=== PATIENT | male | born 1975 | race Caucasian/White ===

== ENCOUNTER 2020-11-04 11:32 | Inpatient (IN) | payer BC ==
[~2020-11-04] VITALS: Ht 175.3 cm; Wt 154.0 kg
[~2020-11-04 11:32] MED LIST: ALLEGRA ALLERGY60 MG PO; AMLO10 PO; ESCI10 PO; FENOFIBRATE145 MG PO; Lisinopril-Hct1 EAC4 PO
[2020-11-04] MEDS ORDERED: LISINOPRIL-HCT1 EAC1 PO ×2 (12:14→20:34)
[2020-11-04] MEDS ORDERED: LISI20 PO (13:17)
[2020-11-04] MEDS ORDERED: HYDCHL25 PO (13:17)
[2020-11-04 14:29] LABS: Hemoglobin 13.9 g/dL (13.5-17.5); Mean Corpuscular HGB 29.3 pg (26.0-34.0); Mean Corpuscular HGB Conc 33.1 g/dL (31.5-36.5); Mean Corpuscular Volume 88 fL (80-100); Platelet Count 127 K/mm3 (150-400); RDW Coefficient Variation 13.5 % (11.7-14.2); RDW Standard Deviation 44.3 fL (35.1-46.3); Red Blood Cell Count 4.75 M/mm3 (4.30-5.90); White Blood Cell Count 6.59 K/mm3 (4.00-11.30)
[2020-11-04 14:44] LABS: Alanine Aminotransfer (ALT/SGP 51 U/L (12-78); Albumin, Blood 3.3 g/dL (3.4-5.0); Albumin/Globulin Ratio 0.8 (0.8-1.8); Alk Phos 25 U/L (50-136); Anion Gap 5 mmol/L (6-16); Aspartate Aminotrans (AST/SGOT 61 U/L (12-37); Bilirubin, Total 0.3 mg/dL (0.1-1.0); Blood Urea Nitrogen 17 mg/dL (8-24); Bun/Creatinine Ratio 13.4 (12.0-20.0); CO2, Blood 26 mmol/L (21-32); Calcium, Blood 8.6 mg/dL (8.5-10.1); Chloride, Blood 108 mmol/L (98-108); Creatinine, Blood 1.27 mg/dL (0.60-1.20); Globulin, Blood 4.2 g/dL (2.2-4.0); Glomerular Filtration Rate >60 (60-); Glucose, Blood 121 mg/dL (70-99); Potassium, Blood 3.7 mmol/L (3.5-5.5); Sodium, Blood 139 mmol/L (136-145); Total Protein, Blood 7.5 g/dL (6.4-8.2)
[2020-11-04 14:49] LABS: BAND PERCENT MAN 15 % (0-8); BASOPHILS PERCENT MAN 0 % (0-2); EOSINOPHILS PERCENT MAN 0 % (0-6); LYMPHOCYTES % ATYPICAL MANUAL 1 % (0-0); LYMPHOCYTES ABSOLUTE MAN 1.18 K/mm3 (0.84-5.20); LYMPHOCYTES PERCENT MAN 17 % (21-46); METAMYELOCYTE ABSOLUTE MAN 0.06 K/mm3 (0.00-0.00); METAMYELOCYTE PERCENT MAN 1 % (0-0); MONOCYTES ABSOLUTE MAN 0.06 K/mm3 (0.16-1.47); MONOCYTES PERCENT MAN 1 % (4-13); NEUTROPHILS ABSOLUTE MAN 5.27 K/mm3 (1.96-9.15); SEG NEUTROPHILS PERCENT MAN 65 % (41-73); TOTAL CELLS COUNTED 100
--- NOTE | 2020-11-04 19:17 | NUR ---
ASSUMED CARE RECEIVED REPORT FROM DEWAYNE WALLS. PT RESTING, IN NO ACUTE DISTRESS. NO ACUTE NEEDS ASSESSED AT THIS TIME. CALL LIGHT IN REACH.
--- NOTE | 2020-11-04 19:35 | NUR ---
PT ARRIVED TO THE MEDICAL FLOOR FROM THE ER VIA YESIKA OTTO, PT WAS ABLE TO GET UP FROM THE BED IND, PT IS ON O2 AT 2L/MIN, THE PT IS SOB WITH EXCERTION. THE PT WAS ORIENTED TO THE ROOM LAYOUT AND CALL SYSTEM, CALL LIGHT IN REACH, REPORT GIVEN TO QUANG BUCHANAN
[2020-11-04] MEDS ORDERED: ESCI20 PO (20:35)
[2020-11-05 04:57] LABS: BASOPHILS PERCENT AUTO 0 % (0-2); EOSINOPHILS PERCENT AUTO 0 % (0-6); Hematocrit 40.8 % (37.0-53.0); Hemoglobin 13.1 g/dL (13.5-17.5); IMMATURE GRAN ABSOLUTE AUTO 0.05 K/mm3 (0.00-0.10); IMMATURE GRAN PERCENT AUTO 1 % (0-1); LYMPHOCYTES ABSOLUTE AUTO 1.37 K/mm3 (0.84-5.20); LYMPHOCYTES PERCENT AUTO 19 % (21-46); MONOCYTES ABSOLUTE AUTO 0.25 K/mm3 (0.16-1.47); MONOCYTES PERCENT AUTO 3 % (4-13); Mean Corpuscular HGB 29.3 pg (26.0-34.0); Mean Corpuscular HGB Conc 32.1 g/dL (31.5-36.5); Mean Corpuscular Volume 91 fL (80-100); Mean Platelet Volume 10.8 fL (9.1-12.4); NEUTROPHILS ABSOLUTE AUTO 5.69 K/mm3 (1.96-9.15); NEUTROPHILS PERCENT AUTO 77 % (41-73); Platelet Count 143 K/mm3 (150-400); RDW Coefficient Variation 13.7 % (11.7-14.2); RDW Standard Deviation 46.3 fL (35.1-46.3); Red Blood Cell Count 4.47 M/mm3 (4.30-5.90); White Blood Cell Count 7.36 K/mm3 (4.00-11.30)
[2020-11-05 05:40] LABS: Anion Gap 6 mmol/L (6-16); Blood Urea Nitrogen 16 mg/dL (8-24); Bun/Creatinine Ratio 15.2 (12.0-20.0); CO2, Blood 28 mmol/L (21-32); Calcium, Blood 8.2 mg/dL (8.5-10.1); Chloride, Blood 104 mmol/L (98-108); Creatinine, Blood 1.05 mg/dL (0.60-1.20); Glomerular Filtration Rate >60 (60-); Glucose, Blood 147 mg/dL (70-99); Potassium, Blood 3.9 mmol/L (3.5-5.5); Sodium, Blood 138 mmol/L (136-145)
--- NOTE | 2020-11-05 07:00 | NUR ---
FILTERING MACHINE TENDER HELPER SUMMARY PT RESTING, IN NO ACUTE DISTRESS. VS REVIEWED,WNL. O2 SATS WNL ON 2L/NC. AFEBRILE THIS AM. PT REPORTS SOB ON EXERTION, BUT REPORTS IT'S "OK" WHEN AT REST. NO OTHER ACUTE CHANGES IN CONDITION NOTED. CALL LIGHT, POSSESSIONS IN REACH, INDEPENDENT IN ROOM. REPORT GIVEN TO DEWAYNE ANGEL.
--- NOTE | 2020-11-05 15:17 | NUR ---
GAVE PT ADVANCED DIRECTIVE HANDBOOK AND A PEN. OFFERED TO DISCUSS THIS, WHICH HE DECLINED AT THIS TIME.
--- NOTE | 2020-11-05 18:12 | NUR ---
SHIFT SUMMARY: TMAX 103.4, STAYED FEBRILE ALL MORNING EVEN AFTER RECEIVING TYLENOL. TEMP DOWN TO 99.4 THIS AFTERNOON. STARTED ON REMDESIVIR TODAY, TOLERATED FINE. DYSPNEA ON EXERTION, TAKES SEVERAL MINUTES TO RECOVER; O2 INCREASED FROM 2 L/MIN TO 3 L/MIN TO KEEP O2 SAT > 88%, STAYING AT 90-92%. ENCOURAGED PT TO USE URINAL TO SAVE WALKING TO THE BR, BUT HE HAS DECLINED SO FAR. HAD REFUSED MOST A.M. MEDS, BUT ENDED UP TAKING THEM AROUND NOON. WAS C/O ABD BLOATING AND GAS; HAD ONE EPISODE OF DIARRHEA AND GOT SOME RELIEF. TOLERATING PO INTAKE, GOOD APPETITE. GAVE PT ADVANCED DIRECTIVE BROCHURE TO FILL OUT.
[2020-11-06 05:23] LABS: Hematocrit 39.3 % (37.0-53.0); Mean Corpuscular HGB 29.8 pg (26.0-34.0); Mean Corpuscular HGB Conc 33.1 g/dL (31.5-36.5); Mean Corpuscular Volume 90 fL (80-100); Mean Platelet Volume 10.7 fL (9.1-12.4); Platelet Count 168 K/mm3 (150-400); RDW Coefficient Variation 13.9 % (11.7-14.2); RDW Standard Deviation 46.3 fL (35.1-46.3); Red Blood Cell Count 4.36 M/mm3 (4.30-5.90)
[2020-11-06 05:45] LABS: Anion Gap 4 mmol/L (6-16); Blood Urea Nitrogen 20 mg/dL (8-24); CO2, Blood 30 mmol/L (21-32); Calcium, Blood 8.1 mg/dL (8.5-10.1); Chloride, Blood 104 mmol/L (98-108); Creatinine, Blood 1.05 mg/dL (0.60-1.20); Glomerular Filtration Rate >60 (60-); Glucose, Blood 157 mg/dL (70-99); Sodium, Blood 138 mmol/L (136-145)
--- NOTE | 2020-11-06 05:48 | NUR ---
SHIFT SUMMARY PATIENT ALERT AND ORIENTED. HAD NO COMPLAINTS OF PAIN. REPORTS FEELING DYSPNIC AND SHORT OF BREATH UPON EXHERTION. PATIENT SLEPT WELL AND HAD NO ACUTE ISSUES NOTED OVERNIGHT. IV PATENT AND FLUSHED. BED IN LOWEST POSITION WITH WHEELS LOCKED. CALL LIGHT WITHIN REACH. REPORT GIVEN TO ONCOMING RN.
--- NOTE | 2020-11-06 18:27 | NUR ---
SHIFT SUMMARY: NO ACUTE EVENTS TODAY. REQUIRING OXYGEN @ 3 L/MIN NC, CANNOT BE WEANED FURTHER AT THIS TIME. HYDROTHERAPIST COUGH, HACKING AT TIMES. BREATH SOUNDS ARE DIM WITH FAINT EXP WHEEZES, STILL QUITE MARC TAKING SEVERAL MINUTES TO RECOVER. DID NOT REPORT ANY DIARRHEA TODAY. DENIES PAIN. TOLERATING PO INTAKE, EATING 100% OF MEALS.
--- NOTE | 2020-11-07 02:30 | NUR ---
SHIFT SUMMARY PATIENT ALERT AND ORIENTED. HAS HAD NO COMPLAINTS OF PAIN AND HAVING MINIMAL NEEDS TONIGHT. PATIENT CURRENTLY ON 3 LITERS O2 VIA NASAL CANULA AND SATING AT 90%. IV PATENT AND FLUSHED. BED IN LOWEST POSITION WITH WHEELS LOCKED. CALL LIGHT WITHIN REACH.
--- NOTE | 2020-11-07 03:34 | NUR ---
ASSUMED CARE: LATE ENTRY FOR 0245-REPORT WAS RECIEVED, JEWELRY SALES ASSUMES CARE OF PATIENT. PATIENT IS SLEEPING AT THIS TIME, DROPPLET ISOLATION FOR COVID IS MAINTAINED.
--- NOTE | 2020-11-07 06:39 | NUR ---
SHIFT SUMMARY: 02 SAT ON 2l WAS 89%, 02 INCREASED TO 4 L, SAT INCREASED TO 90%. VSS, NO COMPLAINTS THIS SHIFT, INDENPENDANT TO THE BATHROOM. DROPPLET PRECAUTIONS ARE MAINTAINED.
--- NOTE | 2020-11-07 17:03 | NUR ---
SHIFT SUMMARY NO ACUTE CHANGES T/O SHIFT, A&O, COOPERATIVE c CARE. PT APPEARS WITHDRAWN AND SAD, REPORTS HE HAS BEEN LYING IN A BED FOR 10 DAYS. HE IS INDEPENDENT c BRP. PT DOES BECOME DYSPNEIC c EXERTION. REMAINS ON 4 L/MIN NC AND SATING AT OR ABOVE 90%. GOOD ORAL INTAKE, DENIES ANY PAIN OR DISTRESS BESIDES GENERAL DISCOMFORT. OCCASIONAL COUGH HEARD. PT IS CURRENTLY RESTING IN BED WITH CALL LIGHT WITHIN REACH. CALLS APPROPRIATELY.
--- NOTE | 2020-11-07 21:30 | NUR ---
PT DENIES PAIN AT THIS TIME. NO CURRENT NEEDS. PT IS INDEPENDENT TO BATHROOM. WILL CONTINUE TO MONITOR.
--- NOTE | 2020-11-07 22:24 | NUR ---
PT ON 4LO2 WITH 89% O2 SATS, RESPIRATORY RATE IN THE UPPER 20S. TURNED PT UP TO 5LO2, CONTACTED RT WHO ALSO SUGGESTED PRONING POSITION. PT DENIES PRONING AT THIS TIME, WILL CONTINUE TO MONITOR TO SEE IF INCREASE IN O2 IMPROVES OXYGENATION.
--- NOTE | 2020-11-07 23:54 | NUR ---
PT APPEARS TO BE BREATHING MORE COMFORTABLY, HOB ELEVATED, CURRENTLY ON 5LO2 VIA NC. RESPIRATIONS 21, O2 SAT BETWEEN 89 AND 91%. PT STILL REFUSING RT RECOMMENDATION OF PRONATION AT THIS TIME. WILL CONTINUE TO MONITOR.
--- NOTE | 2020-11-08 03:09 | NUR ---
SAND MILLER SUMMARY ADMITTED FOR PNEUMONIA AND HYPERTENSION R/T COVID-19. FULL CODE. PT SLEPT THROUGHOUT MOST OF SHIFT. HE WAS ON 4LO2 NC, RESPIRATIONS WERE IN THE HIGH 20S AND SATS MID 80S SO PT BUMPED UP TO 5LO2 NC. VS HAVE IMPROVED WITH INC O2 WITH RESPIRATIONS BACK TO 18 AND O2 SAT OF 91%. RT DID RECOMMEND PRONING WHICH PT REFUSED. PT HAS BEEN NONDISTRESSED T/O SHIFT, SOME EPISODES OF DYSPNEA WITH EXERTION WHICH RESOLVED WITH REST. VS OTHERWISE STABLE. DENIES PAIN. WILL CONTINUE TO MONITOR.
--- NOTE | 2020-11-08 03:58 | NUR ---
I AGREE WITH DOCUMENTATION OF REINSURANCE ACCOUNTANT JODY MCCRAY. ESVERO CORRALES RN
--- NOTE | 2020-11-08 16:59 | NUR ---
PATIENT IS ALERT AND ORIENTED AND COOPERATIVE WITH CARE. HIS AFFECT IS FLAT AND SAD. HE IS INDEPENDENT TO THE BATHROOM, SOB ON EXERTION. HE IS ON 7L O2 HIGHFLOW NC. CONTINUOUS OXIMETRY IS IN PLACE. VSS. HAS A GOOD APPETITE. WILL CONTINUE TO MONITOR
--- NOTE | 2020-11-08 20:43 | NUR ---
SPOKE WITH RESPIRATORY THERAPY WHO EXPRESSED HER CONCERN FOR THE PATIENT R/T REFUSAL TO PRONE OR SIT UP IN CHAIR DURING THE DAY. THE PT WAS ON 2LO2 YESTERDAY DURING AM SHIFT AND IS NOW REQUIRING 7LO2 HIGH FLOW NC. THE NEXT STEP COULD BE PCU TRANSFER OR BIPAP. I SAT DOWN W PT AND EXPLAINED OUR CONCERN FOR HIM. I RECOMMENDED INTERVAL SIDE SLEEPING WITH POSITION CHANGE EVERY 1 - 2 HOURS RIGHT TO LEFT. PT PROVIDED WITH PILLOWS AND ENCOURAGED TO CALL WITH ANY REQUEST FOR POSITIONING HELP, AND REMINDED THAT HELPING HIM IS NOT A BURDEN ON STAFF WE ARE HERE TO HELP. WILL CONTINUE TO MONITOR.
--- NOTE | 2020-11-08 22:13 | NUR ---
PT ON 7LO2 HIGH FLOW NC. NOTED HIS O2 SATS WERE DROPPING TO 88 FROM A STABLE 91-93%. PT HAD NOT AMBULATED TO THE BATHROOM AND APPEARED DYSPNEIC. I DID HAVE PATIENT TURN TO SLEEP ON HIS RIGHT SIDE PER RT SUGGESTION. PT O2 WENT LOW 86% AFTER THIS. RT WAS NOTIFIED. PT IS CURRENTLY BACK TO 88%. IF O2 SAT DOES NOT IMPROVE OR GOES BELOW 88% AGAIN I WILL RAISE TO 8LO2 PER RT SUGGESTION. RT REQUESTS I NOTIFY HER IF I HAVE TO RAISE TO 10LO2 HIGH FLOW NC, BUT THAT I SHOULD CONTINUE TO ENCOURAGE ALTERNATING SIDES. WILL CONTINUE TO MONITOR.
--- NOTE | 2020-11-09 01:19 | NUR ---
PT SAT UP TO GO TO THE BATHROOM AT 0100 AND PULSE OX SHOWED 83-86%. RT CONTACTED AND PT BROUGHT UP FROM [id number]. PT WALKED TO BATHROOM AND WAS ENCOURAGED LIE IN PRONE POSITION WHEN BACK IN BED BECAUSE HIS PULSE OX WAS SHOWING 76%. PT DID LIE ON HIS LEFT SIDE AND O2 INCREASED TO 15LO2 HIGH FLOW NC. PT O2 SATS INCREASED TO 88-91%. PER RT IF PT DESATS AGAIN HE WILL NEED BIPAP AND POSSIBLE TRANSFER TO PCU. WILL CONTINUE TO MONITOR PT O2 SATURATIONS AND RESPIRATORY EFFORT.
--- NOTE | 2020-11-09 01:21 | NUR ---
O2 SATS DROPPED TO 84% ON 10 L/MIN PER NC. HOB WAS ELEVATED BUT STILL HAVING AIR HUNGER. RT NOTIFIED AND WAS INSTRUCTED TO HAVE PT TRY PRONE POSITION AND INCREASE O2 TO 15 L/MIN PER NC. NURSE DISCUSSED PTS RELUCTANCE TO PRONE POSITION, AND DISCUSSED IF HE CONTINUED TO DESAT, HE WOULD NEED TO BE PLACED ON C PAP AND POSSIBLE TRANSFER TO PCU. PT ACKNOWLEDGED SAID INFO AND AGREED TO LAY ON SIDE. CONTINUOUS PULSE OX/O2 SATS INCREASED TO 90% AT THIS WRITING, WILL CONTINUE TO MONITOR. CALL LIGHT IN REACH. ISOLATION PRECAUTIONS MAINTAINED.
--- NOTE | 2020-11-09 03:31 | NUR ---
BROOM MACHINE OPERATOR SUMMARY PT ADMITTED FOR PNEUMONIA R/T COVID-19. FULL CODE. T/O SHIFT PT HAD DYSPNEIC EPISODES WITH O2 DESAT LOW 76% ON 10LO2. PT BEGAN SHIFT ON 7LO2 HIGH FLOW NC, PT IS NOW ON 15LO2 HIGH FLOW NASAL CANULA WHICH IS THE MAX. SATS ARE NOW UP TO 92%. PT HAS BEEN ENCOURAGED TO PRONE, BUT REFUSES OR CANNOT DO SO COMFORTABLY. HE HAS TRIED SLEEPING ON HIS SIDES AND HIS SATS DO GO UP WITH SIDE SLEEPING. IF HE HAS ANOTHER DESATURATION ON 15LO2 HE WILL LIKELY NEED TO BE TRANSFERRED TO A HIGHER LEVEL OF CARE ON BIPAP. VS OTHERWISE HAVE BEEN STABLE. WILL CONTINUE TO MONITOR FOR INCREASING DYSPNEA AND O2 DESATURATION.
--- NOTE | 2020-11-09 04:00 | NUR ---
O2 SATS CONTINUE TO FLUCTUATE. DROPPING INTO MED 80'S AND THEN BACK TO 90 - 91%. RT NOTIFIED AND REQUESTED THAT THEY ASSESS PT. RT TO CHECK -PT, POSSIBLE CHANGE TO AIR VO, AND/OR TRANSFER TO ANOTHER UNIT. CALL LIGHT IN REACH. ISOLATION PRECAUTIONS MAINTAINED
--- NOTE | 2020-11-09 04:06 | NUR ---
I AGREE WITH DOCUMENTATION OF GUTIERREZ MCCRAY STUDENT NURSE. SEVERO AIKEN RN
--- NOTE | 2020-11-09 04:16 | NUR ---
PT HAVING 02 SATS IN LOW 80S ON 15LO2 HIGH FLOW NC, RT NOTIFIED. PT NOW ON AIRVO, 70% FIO2. O2 SAT BETWEEN 93-95%. WILL CONTINUE TO MONITOR.
[2020-11-09 05:59] LABS: BASOPHILS ABSOLUTE AUTO 0.02 K/mm3 (0.00-0.23); BASOPHILS PERCENT AUTO 0 % (0-2); EOSINOPHILS PERCENT AUTO 0 % (0-6); Hematocrit 41.7 % (37.0-53.0); Hemoglobin 13.7 g/dL (13.5-17.5); Mean Corpuscular HGB 29.3 pg (26.0-34.0); Mean Corpuscular HGB Conc 32.9 g/dL (31.5-36.5); Mean Corpuscular Volume 89 fL (80-100); Mean Platelet Volume 10.6 fL (9.1-12.4); NRBC ABSOLUTE 0.02 K/mm3 (0.00-0.02); NRBC Auto 0.3 /100 WBC (0.0-0.2); Platelet Count 249 K/mm3 (150-400); RDW Coefficient Variation 13.2 % (11.7-14.2); RDW Standard Deviation 42.8 fL (35.1-46.3); Red Blood Cell Count 4.68 M/mm3 (4.30-5.90); White Blood Cell Count 7.32 K/mm3 (4.00-11.30)
[2020-11-09 06:02] LABS: IMMATURE GRAN ABSOLUTE AUTO 0.22 K/mm3 (0.00-0.10); IMMATURE GRAN PERCENT AUTO 3 % (0-1); LYMPHOCYTES ABSOLUTE AUTO 1.47 K/mm3 (0.84-5.20); LYMPHOCYTES PERCENT AUTO 20 % (21-46); MONOCYTES ABSOLUTE AUTO 0.57 K/mm3 (0.16-1.47); MONOCYTES PERCENT AUTO 8 % (4-13); NEUTROPHILS ABSOLUTE AUTO 5.04 K/mm3 (1.96-9.15); NEUTROPHILS PERCENT AUTO 69 % (41-73)
[2020-11-09 06:22] LABS: Alanine Aminotransfer (ALT/SGP 63 U/L (12-78); Albumin, Blood 2.8 g/dL (3.4-5.0); Albumin/Globulin Ratio 0.7 (0.8-1.8); Alk Phos 26 U/L (50-136); Anion Gap 2 mmol/L (6-16); Aspartate Aminotrans (AST/SGOT 43 U/L (12-37); Bilirubin, Total 0.4 mg/dL (0.1-1.0); Blood Urea Nitrogen 24 mg/dL (8-24); Bun/Creatinine Ratio 22.9 (12.0-20.0); CO2, Blood 36 mmol/L (21-32); Calcium, Blood 8.7 mg/dL (8.5-10.1); Chloride, Blood 99 mmol/L (98-108); Creatinine, Blood 1.05 mg/dL (0.60-1.20); Globulin, Blood 4.3 g/dL (2.2-4.0); Glomerular Filtration Rate >60 (60-); Glucose, Blood 127 mg/dL (70-99); Potassium, Blood 3.9 mmol/L (3.5-5.5); Sodium, Blood 137 mmol/L (136-145); Total Protein, Blood 7.1 g/dL (6.4-8.2)
--- NOTE | 2020-11-09 17:14 | NUR ---
O2 STATUS: PATIENT IS ON HEATED, HUMIDIFIED HIGH FLOW O2 (AIR-VO) AND HAS BEEN ALL DAY PER RT SETTINGS. VITALS SIGNS ERRONEOUSLY CHARTED THAT INDICATED THAT PATIENT WAS ON RA.
--- NOTE | 2020-11-09 18:31 | NUR ---
END OF SHIFT SUMMARY: PATIENT DENIED PAIN THROUGHOUT THE SHIFT. PATIENT REPORTED GENERALLY FEELING UNWELL AND HAVING MALAISE. PATIENT CONTINUES TO HAVE EXERTIONAL SOB AND MILD SOB AT REST. PATIENT STABLE ON HEATED, HUMIDIFIED HIGH FLOW O2 (AIR-VO) PER RT SETTINGS. PATIENT STAYED BETWEEN 93-97% AT REST. PATIENT REFUSED TO PRONE. PATIENT AGREEABLE TO ATTEMPT TO REPOSITION ON HIS RIGHT SIDE AT TIMES. PROVIDED EDUCATION, SUPPORT AND ENCOURAGEMENT. PATIENT MORE AGREEABLE WITH PILLOWS PUSHED UNDER THIS SIDE AND BACK TO HELP SUPPORT HIM BEING ON THE RIGHT SIDE. PATIENT WITHDRAWN FROM HIS CARE. PATIENT CALM AND APPRECIATIVE, BUT UNINTERESTED IN CHANGES THAT MIGHT HELP HIS BREATHING. PATIENT REPORTED THAT HIS KIDS AT HOME ARE HELPING OUT HIS RECENTLY DISCHARGED AND THAT THAT HAS BEEN HELPING HIM FEEL REASSURED ABOUT HIS INABILITY TO BE HOME.
--- NOTE | 2020-11-09 19:10 | NUR ---
ASSUMED CARE RECEIVED REPORT FROM DEWAYNE ALAN. NO ACUTE NEEDS ASSESSED AT THIS TIME. PT ON AIR-VO, 50L/70% O2, PER RT. O2 SATS WNL AT 94-95%. CALL LIGHT IN REACH.
--- NOTE | 2020-11-10 05:29 | NUR ---
ASSEMBLER 1ST SHIFT SUMMARY PT ASLEEP, IN NO ACUTE DISTRESS. VS REVIEWED,WNL, AFEBRILE; 02 SATS 92-95% ON 50L/65% HEATED HIGH-FLOW O2. PT CONTINUES TO HAVE SOB ON EXERTION, RELIEVED BY REST. PT HAS BEEN SIDE-SLEEPING THROUGHOUT NIGHT, DECLINES INTEREST IN PRONING. REMAINS EMOTIONALLY WITHDRAWN. NO FURTHER ACUTE CHANGES NOTED OVERNIGHT. NO ACUTE NEEDS ASSESSED AT THIS TIME. CALL LIGHT AND POSSESSIONS IN REACH, BED IN LOW AND LOCKED POSITION. WILL CONTINUE TO PROVIDE CARE AND MONITOR O2 STATUS UNTIL REPORT GIVEN TO ONCOMING RN.
--- NOTE | 2020-11-10 12:00 | NUR ---
PATIENT DESATS TO 85% WHEN TRANSFERING BACK TO BED FROM THE BATHROOM. ONCE HE IS BACK IN BED, HIS OXYGEN SATUATION BUMPS BACK UP TO 92%.
--- NOTE | 2020-11-10 12:25 | NUR ---
PATIENT IS UP IN CHAIR FOR LUNCH. THIS RN ENCOURAGED HIM TO SPEND TIME OUT OF BED AND UP IN THE CHAIR. INSCENTIVE SPIROMETER IS ON THE BEDSIDE TABLE. THIS RN ENCORAGED THE PATIENT TO USE THE IS BUT HE REFUSED AT THIS TIME. THE BLIDS IN THE ROOM HAVE BEEN OPENED, THE LINEN CHANGED.
--- NOTE | 2020-11-10 17:58 | NUR ---
PATIENT IS ALERT AND ORIENTED AND COOPERATIVE WITH CARE. HE IS ON AIRVO. CONTINUOS PULSE OX IS IN PLACE, 95%. PATIENT DESATS WITH EXERTION. HE WAS ENCOURAGED TO SIT UP IN THE CHAIR TODAY AND TO SIT UP FOR MEALS. PATIENT WAS TAUGHT HOW TO USE AN INCENTIVE SPIROMETER AND ENCOURAGED TO USE. WILL CONTINUE TO MONITOR
--- NOTE | 2020-11-10 19:00 | NUR ---
ASSUMED CARE RECEIVED REPORT FROM DEWAYNE JAVED. PT RESTING, IN NO ACUTE DISTRESS; O2 SATS >92% ON AIRVO. NO ACUTE NEEDS ASSESSED AT THIS TIME. CALL LIGHT, POSSESSIONS IN REACH.
[2020-11-11 05:31] LABS: Hematocrit 41.5 % (37.0-53.0); Hemoglobin 14.3 g/dL (13.5-17.5); Mean Corpuscular HGB 31.2 pg (26.0-34.0); Mean Corpuscular HGB Conc 34.5 g/dL (31.5-36.5); Mean Corpuscular Volume 91 fL (80-100); Mean Platelet Volume 10.7 fL (9.1-12.4); Platelet Count 286 K/mm3 (150-400); RDW Coefficient Variation 13.2 % (11.7-14.2); RDW Standard Deviation 42.4 fL (35.1-46.3); Red Blood Cell Count 4.58 M/mm3 (4.30-5.90)
--- NOTE | 2020-11-11 05:35 | NUR ---
POLE LIFT OPERATOR SUMMARY PT ASLEEP, IN NAD. RESPS E/U. VS REVIEWED,WNL; O2 SATS 94-96% ON 50L/62% O2 PER AIR-VO/HFNC. ENCOURAGED PT TO USE INCENTIVE SPIROMETER, COMPLIANT. NO OTHER ACUTE CHANGES IN CONDITION NOTED OVERNIGHT. DENIES NEEDS. CALL LIGHT, POSSESSIONS IN REACH, BED IN LOW AND LOCKED POSITION. WILL CONTINUE TO PROVIDE CARE AND REPORT OFF TO ONCOMING RN.
[2020-11-11 05:54] LABS: Alanine Aminotransfer (ALT/SGP 70 U/L (12-78); Albumin, Blood 2.9 g/dL (3.4-5.0); Albumin/Globulin Ratio 0.7 (0.8-1.8); Alk Phos 24 U/L (50-136); Anion Gap 2 mmol/L (6-16); Aspartate Aminotrans (AST/SGOT 24 U/L (12-37); Bilirubin, Total 0.6 mg/dL (0.1-1.0); Blood Urea Nitrogen 27 mg/dL (8-24); Bun/Creatinine Ratio 28.7 (12.0-20.0); CO2, Blood 34 mmol/L (21-32); Calcium, Blood 8.8 mg/dL (8.5-10.1); Chloride, Blood 99 mmol/L (98-108); Creatinine, Blood 0.94 mg/dL (0.60-1.20); Globulin, Blood 4.2 g/dL (2.2-4.0); Glomerular Filtration Rate >60 (60-); Glucose, Blood 129 mg/dL (70-99); Potassium, Blood 4.1 mmol/L (3.5-5.5); Sodium, Blood 135 mmol/L (136-145); Total Protein, Blood 7.1 g/dL (6.4-8.2)
[2020-11-11 06:00] LABS: BASOPHILS PERCENT MAN 0 % (0-2); EOSINOPHILS ABSOLUTE MAN 0.15 K/mm3 (0.00-0.68); EOSINOPHILS PERCENT MAN 2 % (0-6); LYMPHOCYTES % ATYPICAL MANUAL 1 % (0-0); LYMPHOCYTES ABSOLUTE MAN 1.29 K/mm3 (0.84-5.20); LYMPHOCYTES PERCENT MAN 16 % (21-46); MONOCYTES ABSOLUTE MAN 0.76 K/mm3 (0.16-1.47); MONOCYTES PERCENT MAN 10 % (4-13); MYELOCYTE ABSOLUTE MAN 0.22 K/mm3 (0.00-0.00); MYELOCYTE PERCENT MAN 3 % (0-0); NEUTROPHILS ABSOLUTE MAN 5.16 K/mm3 (1.96-9.15); SEG NEUTROPHILS PERCENT MAN 68 % (41-73); TOTAL CELLS COUNTED 100
--- NOTE | 2020-11-11 16:31 | NUR ---
PATIENT IS ALERT AND ORIENTED AND COOPERATIVE WITH CARE. PATIENT HAS BEEN ENCOURAGED TO SIT UP IN THE CHAIR AND USE HIS INCENTIVE SPIROMETER. HE IS ON AIRVO WITH OXYGEN SATURATIONS AT 94% AT THIS TIME. PATIENT AMBULATES TO THE BATHROOM INDEPENDENTLY. DESAT TO 88% ON EXERTION TODAY. PATIENT HAS A GOOD APETITE TODAY. WILL CONTINUE TO MONITOR
--- NOTE | 2020-11-11 18:42 | NUR ---
PT GAVE THIS STUDENT NURSE PERMISSION TO PROVIDE CARE ON 11/11/20.
--- NOTE | 2020-11-11 20:23 | NUR ---
IF HE NEEDED ANYTHING.RN NOTIFIED
[2020-11-12 05:30] LABS: BASOPHILS ABSOLUTE AUTO 0.04 K/mm3 (0.00-0.23); BASOPHILS PERCENT AUTO 1 % (0-2); EOSINOPHILS ABSOLUTE AUTO 0.18 K/mm3 (0.00-0.68); EOSINOPHILS PERCENT AUTO 2 % (0-6); Hematocrit 41.5 % (37.0-53.0); Hemoglobin 14.5 g/dL (13.5-17.5); Mean Corpuscular HGB 31.5 pg (26.0-34.0); Mean Corpuscular HGB Conc 34.9 g/dL (31.5-36.5); Mean Corpuscular Volume 90 fL (80-100); Platelet Count 306 K/mm3 (150-400); RDW Coefficient Variation 13.2 % (11.7-14.2); RDW Standard Deviation 42.4 fL (35.1-46.3); White Blood Cell Count 8.86 K/mm3 (4.00-11.30)
[2020-11-12 05:33] LABS: IMMATURE GRAN ABSOLUTE AUTO 0.37 K/mm3 (0.00-0.10); IMMATURE GRAN PERCENT AUTO 4 % (0-1); LYMPHOCYTES ABSOLUTE AUTO 1.48 K/mm3 (0.84-5.20); LYMPHOCYTES PERCENT AUTO 17 % (21-46); MONOCYTES ABSOLUTE AUTO 0.79 K/mm3 (0.16-1.47); MONOCYTES PERCENT AUTO 9 % (4-13); NEUTROPHILS PERCENT AUTO 68 % (41-73)
[2020-11-12 05:48] LABS: Anion Gap 5 mmol/L (6-16); Blood Urea Nitrogen 30 mg/dL (8-24); Bun/Creatinine Ratio 32.3 (12.0-20.0); CO2, Blood 31 mmol/L (21-32); Calcium, Blood 8.8 mg/dL (8.5-10.1); Chloride, Blood 99 mmol/L (98-108); Creatinine, Blood 0.93 mg/dL (0.60-1.20); Glomerular Filtration Rate >60 (60-); Glucose, Blood 132 mg/dL (70-99); Potassium, Blood 4.2 mmol/L (3.5-5.5); Sodium, Blood 135 mmol/L (136-145)
--- NOTE | 2020-11-12 06:19 | NUR ---
SHIFT SUMMARY PT IS A&O, INDEP IN ROOM, COOPERATIVE W/CARE, NO ACUTE CHANGES THIS SHIFT, NO C/O ANY KIND, ENCOURAGED USING IS WHILE AWAKE, O2 SATS REMAINED 95%-97% T/O THE NIGHT, PT SLEPT T/O THE NIGHT & SLEEPING AT THIS TIME, CALL LIGHT IN REACH, WILL CONT TO MONITOR UNTIL REPORT GIVEN TO DAY RN.
--- NOTE | 2020-11-12 13:03 | NUR ---
STUDENT ASSESSMENT REVIEW I HAVE REVIEWED THE STUDENT'S ASSESSMENT, CONDUCETED MY OWN ASSESSMENT, AND I AGREE WITH THE STUDENT'S FINDINGS
--- NOTE | 2020-11-12 18:29 | NUR ---
Shift Summary, The patient is A/OX4 to person, place, time, and event. The patient has been cooperative with his care. He is independent in the room. The patient has been on AIRVO high flow at 50/55% and 02sat @ >95% thoughout the day. Patient stated he had normal BM this PM. There has been no acute changes this shift. He is currently sitting upright in his bed eating dinner.
--- NOTE | 2020-11-13 04:47 | NUR ---
SHIFT SUMMARY NO ACUTE CHANGES THIS SHIFT, NO C/O ANY KIND, CONTINUES ON AIRVO- SETTINGS REDUCED TO 50%/FI02 40%, RETAINED O2 SATS OF 94-97% T/O THE NIGHT W/NO NOTICED DESATTING, SLEPT T/O THE NIGHT & SLEEPING AT THIS TIME, CALL LIGHT IN REACH, WILL CONT TO MONITOR UNTIL REPORT GIVEN TO DAY RN.
[2020-11-13 05:12] LABS: Hematocrit 41.2 % (37.0-53.0); Hemoglobin 13.9 g/dL (13.5-17.5); Mean Corpuscular HGB 30.1 pg (26.0-34.0); Mean Corpuscular HGB Conc 33.7 g/dL (31.5-36.5); Mean Corpuscular Volume 89 fL (80-100); Mean Platelet Volume 10.8 fL (9.1-12.4); Platelet Count 306 K/mm3 (150-400); RDW Coefficient Variation 13.3 % (11.7-14.2); RDW Standard Deviation 42.9 fL (35.1-46.3); Red Blood Cell Count 4.62 M/mm3 (4.30-5.90); White Blood Cell Count 9.26 K/mm3 (4.00-11.30)
[2020-11-13 05:46] LABS: Anion Gap 4 mmol/L (6-16); Blood Urea Nitrogen 29 mg/dL (8-24); CO2, Blood 31 mmol/L (21-32); Calcium, Blood 8.8 mg/dL (8.5-10.1); Chloride, Blood 99 mmol/L (98-108); Glomerular Filtration Rate >60 (60-); Glucose, Blood 140 mg/dL (70-99); Potassium, Blood 4.3 mmol/L (3.5-5.5); Sodium, Blood 134 mmol/L (136-145)
--- NOTE | 2020-11-13 18:54 | NUR ---
Shift Summary, The patient is A/OX4 to person, place, time, and event. He has been pleasent and complaint with care. The patient is independent in the room. The has remained >95% 02sat while on AIRVO 40/35%. The patient has not c/o SOB and there has not been any acute changes this shift. The patient is currently lying in bed watching TV.
--- NOTE | 2020-11-14 03:53 | NUR ---
SUMMARY: PT A/OX4, INDEPENDENT IN ROOM AND SPECIFIES NEEDS. HE'S SOMEWHAT WITHDRAWN W/A FLAT AFFECT AT TIMES BUT PLEASANT AND COOPERATIVE W/CARE. HE'S DENIED SOB AND WAS TITRATED TO 10L HIGH FLOW O2 THIS SHIFT FROM THE AIRVO. CONT BIOX IS INTACT W/SPO2 WNL, RESPS E/U AND LS CLEAR T/O. PT DENIED PAIN, DYSPNEA AND ALL OTHER COMPLAINTS. NO ACUTE CHANGES, VSS/AFEBRILE. WCTM AND REPORT TO DAY RN.
[2020-11-14 05:14] LABS: Hematocrit 41.5 % (37.0-53.0); Hemoglobin 14.1 g/dL (13.5-17.5); Mean Corpuscular HGB 30.9 pg (26.0-34.0); Mean Corpuscular Volume 91 fL (80-100); Mean Platelet Volume 10.9 fL (9.1-12.4); Platelet Count 260 K/mm3 (150-400); RDW Coefficient Variation 13.2 % (11.7-14.2); RDW Standard Deviation 42.6 fL (35.1-46.3); Red Blood Cell Count 4.57 M/mm3 (4.30-5.90); White Blood Cell Count 8.74 K/mm3 (4.00-11.30)
[2020-11-14 05:40] LABS: Anion Gap 3 mmol/L (6-16); Blood Urea Nitrogen 29 mg/dL (8-24); Bun/Creatinine Ratio 27.9 (12.0-20.0); CO2, Blood 30 mmol/L (21-32); Calcium, Blood 8.5 mg/dL (8.5-10.1); Chloride, Blood 99 mmol/L (98-108); Creatinine, Blood 1.04 mg/dL (0.60-1.20); Glomerular Filtration Rate >60 (60-); Glucose, Blood 133 mg/dL (70-99); Potassium, Blood 4.1 mmol/L (3.5-5.5); Sodium, Blood 132 mmol/L (136-145)
--- NOTE | 2020-11-14 10:50 | NUR ---
STUDENT ASSESSMENT REVIEW I HAVE REVIEWED THE STUDENT'S ASSESSMENT, CONDUCTED MY OWN ASSESSMENT, AND I AGREE WITH THE STUDENT'S FINDINGS.
--- NOTE | 2020-11-14 18:01 | NUR ---
SHIFT SUMMARY PATIENT IS AOX4. INDEPENDENT IN ROOM. PATIENT IS PLEASANT AND COOPERATIVE WITH CARE. PATIENT IS ON 10LWITH NO COMPLAINTS OF SOB. CONTINOUS PULSE OX IN PLACE. PATIENT DENIES ANY PAIN OR OTHER COMPLAINTS DURING SHIFT. NO ACUTE CHANGES DURING SHIFT. VITAL SIGNS REVIEWED.
--- NOTE | 2020-11-15 03:17 | NUR ---
SUMMARY: PT A/OX4, INDEPENDENT IN ROOM AND PLEASANT/COOPERATIVE W/CARE. RT TITRATED HIM TO 8L HIGH FLOW O2 W/SPO2 WNL ON CONT BIOX. LS CLEAR AND PT DENIES SOB W/RESPS OBSERVED E/U. HE'S DENIED PAIN, SOB, DYSPNEA AND ALL OTHER S/S DISTRESS. NO ACUTE CHANGES, VSS/AFEBRILE. WCTM AND REPORT TO DAY RN.
--- NOTE | 2020-11-15 17:18 | NUR ---
SHIFT SUMMARY PATIENT A/OX4. INDEPENDENT IN ROOM. PLEASANT AND COOPERATIVE WITH CARE. RESPIRATORY THERAPY TITRATED PT DOWN TO 4L HIGH FLOW O2 ON CONT BIOX SATTING IN THE MID 90S. PT DENIES PAIN, SOB, DYSPNEA. NO OTHER ACUTE CHANGES THIS SHIFT. VITAL SIGNS REVIEWED.
--- NOTE | 2020-11-15 17:21 | NUR ---
SPECIAL EDUCATION PARA PROFESSIONAL DOC REVIEW THIS RN ASSESSED THE PT, REVIEWED & AGREES WITH THE STUDENT NURSE'S DOCUMENTATION FOR THE SHIFT.
--- NOTE | 2020-11-15 20:30 | NUR ---
RT CHRISTINA REPORTS SHE REDUCED OXYGEN FROM 3L O2 TO 1L AND NOW RA. STATING 93% ON RA AND WAS 95-96 ON 3L. RT WILL SHE WILL RECHECK OXYGEN LEVELS
--- NOTE | 2020-11-16 03:08 | NUR ---
SHIFT SUMMARY RT TURNED PATIENT O2 DOWN FROM 3L TO 1L AND FINALLY TO ROOM AIR. AXO 4 AND INDEPENDENT IN ROOM. ON CONTINUOUS PULSE OXIMETRY STATING 92-94% AND 90% AT TIMES. DENIES PAIN, SOB, AND N/V. PIV REMAINS INTACT. DROPLET PRECAUTIONS. VSS/AFEBRILE. CALL LIGHT IN REACH. BED IN LOWEST POSITION. WILL CONTINUE TO MONITOR UNTIL DAY SHIFT NURSE ASSUMES CARE.
[2020-11-16] MEDS ORDERED: ACET325 PO (09:54)
[2020-11-16] MEDS ORDERED: VITAMIN D5000 UNIT PO (10:03)
--- NOTE | 2020-11-16 10:55 | NUR ---
DISCHARGE INSTRUCTIONS REVIEWED WITH PATIENT. ALL QUESTIONS ANSWERED. PATIENT WILL F/U WITH PCP IN [place]. IV AND CONT BIOX DISCONTINUED. PATIENT TO DISCHARGE HOME WHEN DRESSED AND READY.
--- NOTE | 2020-11-16 11:21 | NUR ---
patient was escorted out by a discharge volunteer via wheelchair at 1120.
== END 2020-11-16 11:20 | disposition home or self-care (01) | DRG 177 ==
LOC: ER 11:32 → MEDS 17:44
PROVIDERS: Emergency Medicine; Internal Medicine; ADMIT Hospitalist
PROC: 3E0333Z Introduction of Anti-inflammatory into Peripheral Vein, Percutaneous Approach (ICD-10-PCS; 2020-11-04)
PROC: 5A09357 Assistance with Respiratory Ventilation, Less than 24 Consecutive Hours, Continuous Positive Airway Pressure (ICD-10-PCS; 2020-11-04)
PROC: XW033E5 Introduction of Remdesivir Anti-infective into Peripheral Vein, Percutaneous Approach, New Technology Group 5 (ICD-10-PCS; principal; 2020-11-05)
DX: U07.1 COVID-19 (principal); J12.82 Pneumonia due to coronavirus disease 2019; J96.01 Acute respiratory failure with hypoxia; N17.0 Acute kidney failure with tubular necrosis; Z68.43 Body mass index [BMI] 50.0-59.9, adult; I10 Essential (primary) hypertension; E86.0 Dehydration; D69.59 Other secondary thrombocytopenia; E78.5 Hyperlipidemia, unspecified; E66.01 Morbid (severe) obesity due to excess calories; Z98.890 Other specified postprocedural states; Z79.899 Other long term (current) drug therapy; Z90.89 Acquired absence of other organs; Z88.8 Allergy status to other drugs, medicaments and biological substances
CPT/HCPCS: 36415; 71045; 80048; 80053; 83735; 85025; 85027; 85379; 85651; 86140; 93005; 93010; 94760; 94761; 94762; 96374; 99284-25; 99285-25; A9270; J1100; J1650; J1885; J7030; J7050; J7120